=== PATIENT | male | born 1995 | race Caucasian/White ===

== ENCOUNTER 2021-09-19 14:46 | Emergency (ER) | payer BC ==
[~2021-09-19] VITALS: Ht 175.3 cm; Wt 72.6 kg
[2021-09-19] MEDS ORDERED: ONDANSETRON 4 MG/2 ML VIAL IV ONE (15:15)
[2021-09-19] MEDS ORDERED: IV NORMAL SALINE 1000 ML BAG IV ONE (15:15)
[2021-09-19] MEDS ORDERED: LORAZEPAM 2 MG/1 ML VIAL IV ONE (15:15)
[2021-09-19] MEDS ORDERED: FAMOTIDINE. 20 MG/2 ML VIAL IV ONE ×2 (15:15→15:20)
[2021-09-19] MEDS ORDERED: ONDANSETRON 4 MG/2 ML VIAL ONE (15:19)
[2021-09-19] MEDS ORDERED: LORAZEPAM 2 MG/1 ML VIAL ONE (15:20)
[2021-09-19 15:53] LABS: MEAN CORPUSCULAR HEMOGLOBIN 30.3 uug (23.8-33.4); PLATELET COUNT (AUTO) 212 K/uL (152-348)
[2021-09-19 16:00] LABS: CREATININE 1.2 mg/dL (0.6-1.3)
[2021-09-19 16:16] LABS: BILIRUBIN,DIRECT 0.3 mg/dL (0.0-0.2); BILIRUBIN,TOTAL 0.8 mg/dL (0.2-1.0); TOTAL PROTEIN, SERUM 8.4 g/dL (6.4-8.2)
[2021-09-19] MEDS ORDERED: ONDA4TAB11 PO (16:40)
[2021-09-19 17:20] VITALS: BP 120/75
== END 2021-09-19 17:20 | disposition home or self-care (01) ==
LOC: ER 14:46
DX: R11.2 Nausea with vomiting, unspecified (principal); F41.9 Anxiety disorder, unspecified; D72.829 Elevated white blood cell count, unspecified; Z85.820 Personal history of malignant melanoma of skin
CPT/HCPCS: 80076; 80048; 83690; 85025; 36415; 99284; 96361; 96374; 96375; 80320; J3490; J2060; J2405; J7040; A4663; G0480